=== PATIENT | male | born 1970 | race Caucasian/White ===

== ENCOUNTER 2017-12-25 19:37 | Emergency (ER) | payer OTHER ==
--- NOTE | 2017-12-25 20:21 | EDM.PDOC ---
ED HPI GENERAL MEDICAL PROBLEM - General Chief Complaint: Back Pain or Injury Stated Complaint: SENT BY CLINIC Time Seen by Provider: 12/25/17 20:21 - History of Present Illness INITIAL COMMENTS - FREE TEXT/NARRATIVE: 47-year-old male comes in with multiple complaints. First he is complaining of low back pain. His thinks his sinus infection is back.. Patient is a 4-5 week history of worsening low back pain he cannot recall a specific injury. He denies loss of bowel or bladder control. 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 The patient has had intermittent bouts of back spasm in the past. He's tried ibuprofen 800 mg 3 times a day with some success but not great. Patient was treate the first November for sinus infection he thinks is coming back he said he was taken Augmentin 500 mg twice a day he had some improvement he also thinks he may have an ear infection. He denies any fevers or chills Back Pain Score (Numeric/FACES): 9 - Related Data Allergies Allergy/AdvReac Type Severity Reaction Status Date / Time No Known Allergies Allergy Verified 12/25/17 19:56 Home Meds: Home Meds Clindamycin HCl 300 mg PO Q8H #30 capsule 12/25/17 [Rx] Cyclobenzaprine [Flexeril] 10 mg PO BEDTIME #7 tab 12/25/17 [Rx] Past Medical History HEENT History: Reports: None Gastrointestinal History: Reports: None Musculoskeletal History: Reports: Fracture Neurological History: Reports: Concussion Psychiatric History: Reports: Depression - Past Surgical History Other HEENT Surgeries/Procedures: [place] teeth GI Surgical History: Reports: Appendectomy Other Endocrine Surgeries/Procedures: Lymph node biopsy Social & Family History - Family History Family Medical History: Noncontributory - Tobacco Use Smoking Status *Q: Never Smoker - Caffeine Use Caffeine Use: Reports: Energy Drinks Other Caffeine Use: Energy drink 16 oz 5-7 days/week - Recreational Drug Use Recreational Drug Use: No ED ROS GENERAL - Review of Systems Review Of Systems: See Below Constitutional: Reports: No Symptoms HEENT: Reports: Ear Pain, Sinus Problem Respiratory: Reports: No Symptoms Cardiovascular: Reports: No Symptoms GI/Abdominal: Reports: No Symptoms : Reports: No Symptoms ED EXAM,LOWER BACK PAIN/INJURY - Physical Exam Exam: See Below Exam Limited By: No Limitations General Appearance: Alert, No Apparent Distress Ears: Normal External Exam, Normal Canal, Hearing Grossly Normal, Normal TMs Nose: Normal Inspection, No Blood, Other (He has mild right frontal sinus discomfort with percussion significant discomfort with maxillary percussion left -sided sinuses are normal if he looks down he developed significant discomfort around the right maxillary sinus) Throat/Mouth: Normal Inspection, Normal Lips, Normal Teeth, Normal Gums, Normal Oropharynx, Normal Voice, No Airway Compromise Head: Atraumatic, Normocephalic Neck: Normal Inspection, Supple, Non-Tender, Full Range of Motion. No: Lymphadenopathy (L), Lymphadenopathy (R) Respiratory/Chest: No Respiratory Distress, Lungs Clear, Normal Breath Sounds, No Accessory Muscle Use, Chest Non-Tender Cardiovascular: Regular Rate, Rhythm, No Edema, No Murmur GI/Abdominal: Normal Bowel Sounds, Non-Tender, No Organomegaly Back Exam: Normal Inspection, Full Range of Motion. No: CVA Tenderness (L), CVA Tenderness (R) Neurological: Alert, Normal Mood/Affect Course - Vital Signs Last Recorded V/S: Last Vital Signs Temp 36.5 C 12/25/17 19:53 Pulse 63 12/25/17 19:53 Resp 14 12/25/17 19:53 BP 159/95 H 12/25/17 19:53 Pulse Ox 96 12/25/17 19:53 Departure - Departure Time of Disposition: 20:41 Disposition: Home, Self-Care 01 Clinical Impression: Right maxillary sinusitis, Lumbar strain - Discharge Information Prescriptions: Clindamycin HCl 300 mg PO Q8H #30 capsule Cyclobenzaprine [Flexeril] 10 mg PO BEDTIME #7 tab Referrals: Fady Felder MD [Primary Care Provider] - Forms: ED Department Discharge
== END 2017-12-25 20:55 | disposition home or self-care (01) ==
LOC: JD.ED 19:37
DX: S39.012A Strain of muscle, fascia and tendon of lower back, initial encounter (principal); J32.0 Chronic maxillary sinusitis; X58.XXXA Exposure to other specified factors, initial encounter
CPT/HCPCS: 99283

== ENCOUNTER 2018-01-03 01:47 | Emergency (ER) | payer OTHER ==
[2018-01-03] MEDS ORDERED: Azithromycin 250 MG Tab PO ONE (02:25)
--- NOTE | 2018-01-03 02:30 | EDM.PDOC ---
ED HPI GENERAL MEDICAL PROBLEM - General Chief Complaint: Respiratory Problem Stated Complaint: COUGH/CONGESTION Time Seen by Provider: 01/03/18 02:08 Source of Information: Reports: Patient, RN Notes Reviewed - History of Present Illness INITIAL COMMENTS - FREE TEXT/NARRATIVE: 47-year-old male comes in with severe cough and congestion. He first started nasal and sinus congestion about 10 days ago. Was diagnosed with an ear infection very shortly after that, started on clindamycin for that. The nasal and sinus congestion has continued with mostly clear type drainage. His throat is somewhat irritated but not severely uncomfortable. Cough has worsened tremendously over the past several days. He is working as a [employer], working 12-14 hours a day all having excessive the sleeping at night. No fever or chills., He does not smoke. - Related Data Allergies Allergy/AdvReac Type Severity Reaction Status Date / Time No Known Allergies Allergy Verified 01/03/18 01:56 Home Meds: Home Meds Clindamycin HCl 300 mg PO Q8H #30 capsule 12/25/17 [Rx] Cyclobenzaprine [Flexeril] 10 mg PO BEDTIME #7 tab 12/25/17 [Rx] Past Medical History HEENT History: Reports: None Gastrointestinal History: Reports: None Musculoskeletal History: Reports: Fracture Neurological History: Reports: Concussion Psychiatric History: Reports: Depression - Past Surgical History HEENT Surgical History: Reports: Other (See Below) Other HEENT Surgeries/Procedures: [place] teeth GI Surgical History: Reports: Appendectomy Endocrine Surgical History: Reports: Other (See Below) Other Endocrine Surgeries/Procedures: Lymph node biopsy Social & Family History - Family History Family Medical History: Noncontributory - Tobacco Use Smoking Status *Q: Never Smoker - Caffeine Use Caffeine Use: Reports: Coffee Other Caffeine Use: Energy drink 16 oz 5-7 days/week - Recreational Drug Use Recreational Drug Use: No ED ROS GENERAL - Review of Systems Review Of Systems: See Below Constitutional: Denies: Fever, Chills, Diaphoresis HEENT: Reports: Rhinitis, Sinus Problem (Mild discomfort), Throat Pain Respiratory: Reports: Cough, Sputum (Scant) Cardiovascular: Reports: Chest Pain (With coughing) GI/Abdominal: Denies: Abdominal Pain, Nausea, Vomiting Musculoskeletal: Reports: No Symptoms Skin: Reports: No Symptoms Neurological: Reports: No Symptoms ED EXAM, GENERAL - Physical Exam Exam: See Below General Appearance: Alert, Other (Frequent nonproductive cough) Eye Exam: Bilateral Eye: PERRL Ears: Normal External Exam, Normal Canal, Normal TMs Nose: Normal Inspection Throat/Mouth: Normal Inspection Head: No: Facial Swelling, Facial Tenderness Neck: Supple, Full Range of Motion. No: Lymphadenopathy (L), Lymphadenopathy (R ) Respiratory/Chest: No Respiratory Distress, Lungs Clear, Normal Breath Sounds. No: Rhonchi, Wheezing Cardiovascular: Regular Rate, Rhythm Extremities: Normal Inspection, Normal Range of Motion Neurological: Alert, Oriented, No Motor/Sensory Deficits Skin Exam: Warm, Dry, Normal Color Course - Vital Signs Last Recorded V/S: Last Vital Signs Temp 97.7 F 01/03/18 01:53 Pulse 76 01/03/18 01:53 Resp 18 01/03/18 01:53 BP 152/100 H 01/03/18 01:53 Pulse Ox 98 01/03/18 01:53 - Orders/Labs/Meds Meds: Medications Discontinued Medications Generic Name Dose Route Start Last Admin Trade Name Ramses PRN Reason Stop Dose Admin Azithromycin 500 mg 01/03/18 02:25 01/03/18 02:30 Zithromax PO 01/03/18 02:26 500 mg ONETIME ONE Administration Departure - Departure Time of Disposition: 02:25 Disposition: Home, Self-Care 01 Condition: Fair Clinical Impression: Viral upper respiratory infection, Bronchitis - Discharge Information Instructions: Cough, Adult, [id number] Referrals: Fady Felder MD [Primary Care Provider] - Forms: ED Department Discharge, ED Return to Work/School Form Additional Instructions: Zithromax antibiotic as prescribed, continue Sudafed type decongestant every 4- 6 hours as needed for severe nasal and sinus congestion, vaporizer or steam as needed, Phenergan with codeine cough medication as needed to help you sleep, do not take that within [address], albuterol inhaler 2 puffs every 4-6 hours as needed for severe cough or difficulty breathing, clinic if not much better within 3-5 days as expected or if symptoms worsening in any way. Finish clindamycin as previously prescribed.
== END 2018-01-03 02:39 | disposition home or self-care (01) ==
LOC: JD.ED 01:47
DX: J40 Bronchitis, not specified as acute or chronic (principal); J06.9 Acute upper respiratory infection, unspecified
CPT/HCPCS: 99283; A9270

== ENCOUNTER 2018-09-23 17:07 | Emergency (ER) | payer OTHER, BC ==
[2018-09-23] MEDS ORDERED: HYDROmorphone 1 MG/ML Syringe IVPUSH ONE (18:17)
[2018-09-23] MEDS ORDERED: Ondansetron 4 MG/2 ML SDV IVPUSH ONE (18:17)
--- NOTE | 2018-09-23 18:17 | EDM.PDOC ---
ED HPI GENERAL MEDICAL PROBLEM - General Chief Complaint: Trauma Stated Complaint: MULTIPLE INJURIES RT SIDE FELL 6 FT Time Seen by Provider: 09/23/18 18:00 Source of Information: Reports: Patient, RN Notes Reviewed History Limitations: Reports: No Limitations - History of Present Illness INITIAL COMMENTS - FREE TEXT/NARRATIVE: The patient states that he fell 6 to 8 feet off a semi trailer onto concrete around 13:50 this afternoon, landing on his left side. He presents with pain to his left shoulder, left upper arm, the left side of his chest, his left upper back, and the dorsal aspect of his right hand. His greatest pain is to his left chest and left upper back. He denies having pain to his pelvis or lower extremities. He states that he did not hit his head, and there was no loss of consciousness. The patient drove himself here. The patient's last oral intake was around 13:00 this afternoon. The patient's PCP is Dr. Felder. Left Chest Pain Score (Numeric/FACES): 10 - Related Data Allergies Allergy/AdvReac Type Severity Reaction Status Date / Time No Known Allergies Allergy Verified 09/23/18 17:17 Home Meds: Home Meds Acetaminophen/HYDROcodone [[place] 325-5 MG] 1 - 2 tab PO Q6H PRN #8 tablet [Rx] Past Medical History Cardiovascular History: Reports: High Cholesterol (untreated) Musculoskeletal History: Reports: Fracture (fingers) Psychiatric History: Reports: Depression (untreated) - Past Surgical History HEENT Surgical History: Reports: Oral Surgery ([place] teeth extraction) GI Surgical History: Reports: Appendectomy (1989) Musculoskeletal Surgical History: Reports: Shoulder Surgery (left arthroscopic, right open) Oncologic Surgical History: Reports: Other (See Below) (Left axillary lymph node biopsy) Social & Family History - Family History Family Medical History: Noncontributory - Tobacco Use Smoking Status *Q: Never Smoker - Caffeine Use Caffeine Use: Reports: Coffee Other Caffeine Use: Energy drink 16 oz 5-7 days/week - Alcohol Use Alcohol Use History: Yes Alcohol Use Frequency: Rarely - Recreational Drug Use Recreational Drug Use: No - Living Situation & Occupation Living situation: Reports: , with Spouse, with Family (1 child) 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 ED EXAM, GENERAL - Physical Exam Exam: See Below Exam Limited By: No Limitations General Appearance: Alert, WD/WN, Mild Distress (Appears to be in pain) Eye Exam: Bilateral Eye: EOMI, Normal Inspection Ears: Normal External Exam, Hearing Grossly Normal Nose: Normal Inspection Throat/Mouth: Normal Inspection, Normal Lips, Normal Voice, No Airway Compromise Head: Atraumatic, Normocephalic Neck: Normal Inspection, Full Range of Motion Respiratory/Chest: No Respiratory Distress, Lungs Clear, Normal Breath Sounds, No Accessory Muscle Use, Other (No visible abnormality to the left side of the patient's chest, such as swelling, erythema, ecchymosis, or abrasion. Tenderness primarily to the left chest around the 4th to 6th intercostal space, midaxillary line, as well as to the lateral aspect of the left scapula. No crepitus on palpation. No rub on auscultation.). No: Crackles, Rhonchi, Wheezing, Pleural Rub Cardiovascular: Normal Peripheral Pulses, Regular Rate, Rhythm, No Edema, No Gallop, No JVD, No Murmur, No Rub Peripheral Pulses: 4+: Radial (L), Radial (R) GI/Abdominal: Normal Bowel Sounds, Soft, Non-Tender, No Organomegaly, No Distention, No Abnormal Bruit, No Mass (Male) Exam: Deferred Rectal (Males) Exam: Deferred Back Exam: Normal Inspection, Full Range of Motion. No: Vertebral Tenderness Extremities: Normal Inspection, Normal Range of Motion, No Pedal Edema, Normal Capillary Refill, Other (No visible abnormality to the left upper extremity, such as swelling, erythema, ecchymosis or abrasion, however, there is tenderness to palpation, particularly of the upper left humerus. Neurovascular status of the left upper extremity is intact. Additionally, there is tenderness to the dorsal aspect of the right hand, although there is no visible abnormality , such as swelling, erythema, ecchymosis, or abrasion. Neurovascular status of the right hand is intact.) Neurological: Alert, Oriented, Normal Cognition, No Motor/Sensory Deficits Psychiatric: Normal Affect Skin Exam: Warm, Dry, Intact, Normal Color, No Rash Course - Vital Signs Last Recorded V/S: Last Vital Signs Temp 37.2 C 09/23/18 17:15 Pulse 93 02/18/19 17:15 Resp 16 09/23/18 17:15 BP 169/106 H 09/23/18 17:15 Pulse Ox 99 09/23/18 17:15 - Orders/Labs/Meds Orders: Active Orders 24 hr Category Date Time Status Chest 1V Frontal [CR] Stat Exams 09/23/18 17:29 Taken Forearm 2V Lt [CR] Stat Exams 09/23/18 18:20 Ordered Hand 2V Rt [CR] Stat Exams 09/23/18 18:21 Ordered Humerus Lt [CR] Stat Exams 09/23/18 18:20 Ordered Shoulder Comp Lt [CR] Stat Exams 09/23/18 18:19 Ordered Sodium Chloride 0.9% [Normal Saline] 1,000 ml Med 09/23/18 18:30 Active IV ASDIRECTED Medication Orders Sodium Chloride (Normal Saline) 1,000 mls @ 150 mls/hr IV ASDIRECTED NINO Last Admin: 09/23/18 18:23 Dose: 150 mls/hr Meds: Medications Generic Name Dose Route Start Last Admin Trade Name Freq PRN Reason Stop Dose Admin Sodium Chloride 1,000 mls @ 150 mls/hr 09/23/18 18:30 09/23/18 18:23 Normal Saline IV 150 mls/hr ASDIRECTED NINO Administration Discontinued Medications Generic Name Dose Route Start Last Admin Trade Name Freq PRN Reason Stop Dose Admin Hydromorphone HCl 1 mg 09/23/18 18:17 09/23/18 18:25 Dilaudid IVPUSH 09/23/18 18:18 1 mg ONETIME ONE Administration Ondansetron HCl 4 mg 09/23/18 18:17 09/23/18 18:25 Zofran IVPUSH 09/23/18 18:18 4 mg ONETIME ONE Administration - Re-Assessments/Exams Free Text/Narrative Re-Assessment/Exam: 09/23/18 18:16 Portable chest radiograph appears to be grossly normal. The cardiac silhouette is within normal limits. No pulmonary vascular congestion. No pleural effusions. No focal infiltrate. No pneumothorax. No rib fractures seen. Formal read per the Radiologist pending. 09/23/18 19:18 3-view radiographs of the left shoulder appear to be normal. No fracture of the humerus or scapula identified. No before meals separation. Formal read per the Radiologist pending. 4-view radiographs of the left humerus appear to be normal. No fracture or dislocation identified. Formal read per the Radiologist pending. 2-view radiographs of the left forearm appear to be normal. No fracture or dislocation identified. Formal read per the Radiologist pending. 2-view radiographs of the right hand appear to be normal. No fracture or dislocation identified. Formal read per the Radiologist pending. 09/23/18 19:28 Test results discussed with the patient and his . As above, nothing appears to be broken. I will discharge him home with a prescription for [place], and I am recommending that he take [id number] ibuprofen in addition. I will write him a note for work for tomorrow, during which time he can follow-up with his PCP, Dr. Felder, who may want to have the patient off work for a longer period of time. Departure - Departure Time of Disposition: 19:31 Disposition: Home, Self-Care 01 Condition: Fair Clinical Impression: Fall from mobile elevated work platform as cause of accidental injury, Multiple contusions - Discharge Information *PRESCRIPTION DRUG MONITORING PROGRAM REVIEWED*: Not Applicable *COPY OF PRESCRIPTION DRUG MONITORING REPORT IN PATIENT FRANCES: Not Applicable Prescriptions: Acetaminophen/HYDROcodone [[place] 325-5 MG] 1 - 2 tab PO Q6H PRN #8 tablet PRN Reason: Pain (Severe 7-10) Referrals: Fady Felder MD [Primary Care Provider] - Forms: ED Department Discharge, ED Return to Work/School Form Additional Instructions: You were seen in the emergency room after falling 6 to 8 feet off the back of a semi trailer onto your left side. Workup in the ER included x-rays of your chest, your left shoulder, your left upper arm, your left forearm, and your right hand. All of your x-rays were normal. No broken bones were found. Take [id number] ibuprofen, 3-4 tablets (600-800 mg) every 8 hours, with food, as needed for discomfort. You have been prescribed the opiate pain reliever [place]. Take 1 to 2 tablets of [place] up to every 6 hours, as needed for pain not relieved by ibuprofen. If you take [place], do not drive or operate heavy machinery for 10 hours afterwards. [place] will likely cause constipation, so consider taking a stool softener. Aid note to be off work tomorrow, 09/24/2017 has been provided to you. Follow-up with your PCP, Dr. Felder, tomorrow, 09/24/2018, to determine how long he would like you off work. If any other problems, please do not hesitate to return to the ER. - My Orders Last 24 Hours: My Active Orders 09/23/18 17:29 Chest 1V Frontal [CR] Stat 09/23/18 18:19 Shoulder Comp Lt [CR] Stat 09/23/18 18:20 Forearm 2V Lt [CR] Stat Humerus Lt [CR] Stat 09/23/18 18:21 Hand 2V Rt [CR] Stat 09/23/18 18:30 Sodium Chloride 0.9% [Normal Saline] 1,000 ml IV ASDIRECTED - Assessment/Plan Last 24 Hours: My Active Orders 09/23/18 17:29 Chest 1V Frontal [CR] Stat 09/23/18 18:19 Shoulder Comp Lt [CR] Stat 09/23/18 18:20 Forearm 2V Lt [CR] Stat Humerus Lt [CR] Stat 09/23/18 18:21 Hand 2V Rt [CR] Stat 09/23/18 18:30 Sodium Chloride 0.9% [Normal Saline] 1,000 ml IV ASDIRECTED
[2018-09-23] MEDS ORDERED: Sodium Chloride 0.9% 1,000 ML IV SCH (18:30)
--- NOTE | 2018-09-23 21:01 | CR ---
Chest: Portable view of the chest was obtained. Comparison: No prior chest x-ray, previous chest CT of 08/24/18. Heart size is within normal limits for portable technique. Upper mediastinum is also within normal limits. Lungs are clear with no acute parenchymal change. Bony structures are grossly intact. Impression: 1. Nothing acute is seen on portable chest x-ray. Diagnostic code #1
--- NOTE | 2018-09-23 21:01 | CR ---
Left forearm: Two views of the left forearm were obtained. Comparison: No prior forearm study. No fracture or other bony abnormality is seen. Impression: 1. No abnormality is seen on left forearm study. Diagnostic code #1
--- NOTE | 2018-09-23 21:01 | CR ---
Left humerus: AP and lateral views of the left humerus were obtained. No fracture or other bony abnormality is seen. Impression: 1. No abnormality is seen on two-view left humerus exam. Diagnostic code #1
--- NOTE | 2018-09-23 21:01 | CR ---
Right hand: Two views of the right hand were obtained. Comparison: No prior hand exam. Joint spaces are preserved. No acute fracture, dislocation or other bony abnormality is seen. Impression: 1. No abnormality is appreciated on two-view right hand exam. Diagnostic code #1
--- NOTE | 2018-09-23 21:01 | CR ---
Left shoulder: Three views of the left shoulder were obtained. Comparison: No previous study. Acromioclavicular joint and glenohumeral joints appear within normal limits. No fracture, dislocation or other bony abnormality is seen. Impression: 1. No abnormality is seen on left shoulder study. Diagnostic code #1
== END 2018-09-23 19:52 | disposition home or self-care (01) ==
LOC: JD.ED 17:07
DX: R07.9 Chest pain, unspecified (principal); M54.6 Pain in thoracic spine; M25.512 Pain in left shoulder; M79.622 Pain in left upper arm; M79.641 Pain in right hand; Z90.49 Acquired absence of other specified parts of digestive tract; W17.89XA Other fall from one level to another, initial encounter
CPT/HCPCS: 71045; 73030; 73060; 73090; 73120; 96361; 96374; 96375; 99283; J1170; J2405; J7040; 99284

== ENCOUNTER 2019-12-29 12:12 | Emergency (ER) | payer BC ==
[2019-12-29] MEDS ORDERED: Sodium Chloride 0.9% 10 ML Syringe FLUSH PRN (12:40)
[2019-12-29] MEDS ORDERED: Sodium Chloride 0.9% 1,000 ML IV ONE (12:41)
[2019-12-29] MEDS ORDERED: Ondansetron 4 MG/2 ML SDV IVPUSH ONE (12:41)
[2019-12-29] MEDS ORDERED: HYDROmorphone 1 MG/ML Syringe IVPUSH ONE (12:42)
[2019-12-29] MEDS ORDERED: Aspirin 81 MG Tab.Chew PO ONE (12:43)
[2019-12-29] MEDS ORDERED: LORazepam 2 MG/ML SDV IVPUSH STA (12:47)
[2019-12-29] MEDS ORDERED: HYDROmorphone 0.5 MG/0.5 ML Syringe IVPUSH ONE (12:48)
--- NOTE | 2019-12-29 12:54 | EDM.PDOC ---
<Candice Myao - Last Filed: 12/29/19 14:28> ED HPI GENERAL MEDICAL PROBLEM - General Chief Complaint: Upper Extremity Injury/Pain Stated Complaint: L ARM PAIN Time Seen by Provider: 12/29/19 12:17 Source of Information: Reports: Patient History Limitations: Reports: No Limitations - History of Present Illness INITIAL COMMENTS - FREE TEXT/NARRATIVE: Mr. Beal is a 49 year old man with a history of normal stress test and echo three years ago, total cholesterol 280 5 months ago and a fatty liver, who now presents to the ED with complaints of burning left arm pain that started around 12:00 today while her was sitting in his recliner relaxing. He does not know of any trauma or strenuous activity prior to the pain. His only activity over the last few days was vacuuming. He appreciates pain in his left lateral chest, left neck, radiating down his left arm to his finger tips. He does have paraesthesia of bilateral fingers. Movement makes the pain worse. Nothing seems to help the pain. He does have SOB. Denies N/V or diaphoresis. The patient denies walking around makes the pain worse. His father at age 48 from a cardiac reason. Here in the ED the patient is hemodynamically stable with a BP 137/84, pulse 68 , and afebrile. The patient had a resp rate of 28 with SpO2 100% with the increasing paraesthesia. Patient educated on breathing techniques. Now saturating 95% on room air. The patient's PCP is Dr. Fady Felder. Left Arm Pain Score (Numeric/FACES): 10 - Related Data Allergies Allergy/AdvReac Type Severity Reaction Status Date / Time No Known Allergies Allergy Verified 12/29/19 12:24 Home Meds: Home Meds Acetaminophen/HYDROcodone [[place] 325-5 MG] 1 - 2 tab PO Q6H PRN #8 tablet [Rx] Past Medical History Cardiovascular History: Reports: High Cholesterol Musculoskeletal History: Reports: Fracture Neurological History: Reports: Concussion Psychiatric History: Reports: Depression - Past Surgical History HEENT Surgical History: Reports: Oral Surgery GI Surgical History: Reports: Appendectomy Other Endocrine Surgeries/Procedures: Lymph node biopsy Musculoskeletal Surgical History: Reports: Shoulder Surgery Oncologic Surgical History: Reports: Other (See Below) Social & Family History - Family History Family Medical History: Noncontributory - Tobacco Use Smoking Status *Q: Never Smoker Second Hand Smoke Exposure: No - Caffeine Use Caffeine Use: Reports: None Other Caffeine Use: Energy drink 16 oz 5-7 days/week - Recreational Drug Use Recreational Drug Use: No - Living Situation & Occupation Living situation: Reports: , with Spouse, with Family (1 child) 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 Denies: Chills, Fever, Weakness Eyes: Reports: No Symptoms Ears: Denies: Dizziness, Pain Nose: Reports: No Symptoms Mouth/Throat: Denies: Tongue Swelling, Hoarse Voice Respiratory: Reports: Shortness of Breath, Wheezing, Pleuritic Chest Pain, Cough Cardiovascular: Reports: Chest Pain. Denies: Edema, Palpitations, Syncope GI/Abdominal: Denies: Constipation, Diarrhea, Nausea, Vomiting Genitourinary: Reports: No Symptoms Musculoskeletal: Reports: Neck Pain (left), Shoulder Pain (Left burning pain), Arm Pain (Left burning pain), Hand Pain (left burning pain) Skin: Reports: No Symptoms Neurological: Reports: Tingling (bilateral fingers). Denies: Confusion, Dizziness, Headache, Syncope Psychiatric: Reports: Anxiety. Denies: Confusion ED EXAM, GENERAL - Physical Exam Exam: See Below Exam Limited By: Other (T: 97.8 P: 74 Resp: 20 BP 153/100) General Appearance: Alert, WD/WN, Anxious, Moderate Distress Eye Exam: Bilateral Eye: EOMI, Normal Inspection Ears: Normal External Exam, Hearing Grossly Normal Nose: Normal Inspection Throat/Mouth: Normal Inspection, Normal Voice, No Airway Compromise Head: Atraumatic, Normocephalic Neck: Normal Inspection, Full Range of Motion Respiratory/Chest: No Respiratory Distress, Lungs Clear, Normal Breath Sounds, No Accessory Muscle Use, Chest Non-Tender, Other (tachypneic) Cardiovascular: Normal Peripheral Pulses, Regular Rate, Rhythm, No Edema, No Gallop, No JVD, No Murmur, No Rub, Bradycardia Peripheral Pulses: 2+: Dorsalis Pedis (L), Dorsalis Pedis (R) GI/Abdominal: Normal Bowel Sounds, Soft, Non-Tender, No Organomegaly, No Distention, No Abnormal Bruit, No Mass (Male) Exam: Deferred Rectal (Males) Exam: Deferred Back Exam: Normal Inspection Extremities: Normal Inspection, No Pedal Edema, Normal Capillary Refill, Arm Pain (Left arm burning pain), Other (parasthesia bilateral finger tips). No: Pedal Edema Neurological: Alert, Oriented, CN II-XII Intact, Normal Cognition, Normal Reflexes, No Motor/Sensory Deficits Psychiatric: Anxious Skin Exam: Warm, Dry, Intact, Normal Color, No Rash Lymphatic: No Adenopathy EKG INTERPRETATION EKG Date: 12/29/19 Time: 12:21 Rhythm: NSR [place]: Normal P-Wave: Present QRS: Normal ST-T: Elevated (Early reolarization) QT: Normal Course - Vital Signs Last Recorded V/S: Last Vital Signs Temp 97.8 F 12/29/19 12:21 Pulse 74 12/29/19 12:21 Resp 20 12/29/19 12:21 BP 153/100 H 12/29/19 12:21 Pulse Ox 100 12/29/19 12:21 - Orders/Labs/Meds Orders: Active Orders 24 hr Category Date Time Status EKG Documentation Completion [RC] STAT Care 12/29/19 12:39 Active Peripheral IV Care [RC] . DIRECTED Care 12/29/19 12:40 Active Peripheral IV Insertion Adult [OM.PC] Routine Oth 12/29/19 12:40 Ordered Labs: Laboratory Tests 12/29/19 12/29/19 Range/Units 12:40 12:40 WBC 5.60 (4.23-9.07) K/mm3 RBC 5.87 (4.63-6.08) M/mm3 Hgb 15.8 D (13.7-17.5) gm/dl Hct 46.9 (40.1-51.0) % MCV 79.9 D (79.0-92.2) fl MCH 26.9 (25.7-32.2) pg MCHC 33.7 (32.2-35.5) g/dl RDW Std Deviation 38.3 (35.1-43.9) fL Plt Count 187 (163-337) K/mm3 MPV 10.0 (9.4-12.3) fl Neutrophils % (Manual) 56 (40-60) % Band Neutrophils % 0 (0-10) % Lymphocytes % (Manual) 30 (20-40) % Atypical Lymphs % 0 % Monocytes % (Manual) 11 H (2-10) % Eosinophils % (Manual) 3 (0.8-7.0) % Basophils % (Manual) 0 L (0.2-1.2) Platelet Estimate Adequate RBC Morph Comment Normal Sodium 138 (136-145) mEq/L Potassium 3.9 (3.5-5.1) mEq/L Chloride 103 (98-107) mEq/L Carbon Dioxide 26 (21-32) mEq/L Anion Gap 12.9 (5-15) BUN 18 (7-18) mg/dL Creatinine 1.1 (0.7-1.3) mg/dL Est Cr Clr Drug Dosing 93.82 mL/min Estimated GFR (MDRD) > 60 (>60) mL/min BUN/Creatinine Ratio 16.4 (14-18) Glucose 103 (74-106) mg/dL Calcium 9.7 (8.5-10.1) mg/dL Magnesium 1.8 (1.8-2.4) mg/dl Total Bilirubin 0.8 (0.2-1.0) mg/dL AST 38 H (15-37) U/L ALT 73 H (16-63) U/L Alkaline Phosphatase 73 (46-116) U/L Troponin I < 0.017 (0.00-0.056) ng/mL Total Protein 7.4 (6.4-8.2) g/dl Albumin 4.2 (3.4-5.0) g/dl Globulin 3.2 gm/dL Albumin/Globulin Ratio 1.3 (1-2) Meds: Medications Discontinued Medications Generic Name Dose Route Start Last Admin Trade Name Ramses PRN Reason Stop Dose Admin Aspirin 324 mg 12/29/19 12:43 12/29/19 13:10 Aspirin PO 12/29/19 12:44 324 mg ONETIME ONE Administration Hydromorphone HCl 1 mg 12/29/19 12:42 Dilaudid IVPUSH 12/29/19 12:43 ONETIME ONE Hydromorphone HCl 0.5 mg 12/29/19 12:48 12/29/19 13:15 Dilaudid IVPUSH 12/29/19 12:49 0.5 mg ONETIME ONE Administration Sodium Chloride 1,000 mls @ 999 mls/hr 12/29/19 12:41 12/29/19 13:17 Normal Saline IV 12/29/19 13:41 999 mls/hr ONETIME ONE Administration Lorazepam 0.5 mg 12/29/19 12:47 12/29/19 13:07 Ativan IVPUSH 12/29/19 12:48 0.5 mg ONETIME STA Administration Ondansetron HCl 4 mg 12/29/19 12:41 12/29/19 13:12 Zofran IVPUSH 12/29/19 12:42 4 mg ONETIME ONE Administration Sodium Chloride 10 ml 12/29/19 12:40 12/29/19 12:40 Saline Flush FLUSH 10 ml ASDIRECTED PRN Administration Keep Vein Open - Re-Assessments/Exams Free Text/Narrative Re-Assessment/Exam: 12/29/19 12:49 The patient present with complaints of left arm pain that start left lateral chest radiating to left neck, down to the hand. He does not remember and injury and was sitting in his chair when the pain started. Ordered labs, cxr, IV insertion, Dilaudid 0.5mg, Ativan 0.5mg, asa 364 mg and normal saline bolus. 12/29/19 13:35 CXR unremarkable pending formal Radiologist reading. The patient is calmer. SpO2 is 95% on room air. He reports his arm pain is better with mild burning in his left bicep. He has good strength and CMS in the arm. The right finger paraesthesia has resolved with the left finger tip paraesthesia decreasing. The patient states he has never had a panic attack previously Departure - Departure Disposition: Home, Self-Care 01 Clinical Impression: Panic attack due to exceptional stress - Discharge Information Instructions: Panic Attack, [id number] Referrals: Fady Felder MD [Primary Care Provider] - Forms: ED Department Discharge Additional Instructions: You were evaluated in the ER today regarding your left arm/chest discomfort. Your laboratory evaluation done at today's visit demonstrates everything is essentially within normal limits. Your liver enzymes are mildly elevated, but you do have a history of fatty liver disease, that could explain this. Highly recommend you follow-up with your primary care provider, Dr. Felder, or Kaylin Cheung in our clinic for further work-up and reevaluation to make sure things are getting better as expected. It is likely that most of your symptoms today were due to a panic attack due to exceptional stress in your life. The medications that we gave you today seem to help relieve the symptoms and you were better by the time you have been discharged. Please return to the ER at any time if symptoms change or worsen. Sepsis Event Note - Evaluation Sepsis Screening Result: No Definite Risk - Focused Exam Vital Signs: Vital Signs Temp Pulse Resp BP Pulse Ox 12/29/19 12:21 97.8 F 74 20 153/100 H 100 Date Exam was Performed: 12/29/19 Time Exam was Performed: 14:28 <Alexa Helton - Last Filed: 12/29/19 20:45> Review of Systems - Review of Systems Review Of Systems: See Below Course - Re-Assessments/Exams Free Text/Narrative Re-Assessment/Exam: 12/29/19 14:03 I have read and reviewed the student's HPI and examined the patient and agree with Karrie Mayo, GRANT student. I do believe the patient was suffering from a panic attack in nature, we have talked with him regarding anxiety and the need to follow-up with his primary care provider, he acknowledges understanding and will do as such. Departure - Departure Time of Disposition: 14:04 Condition: Good - Discharge Information *PRESCRIPTION DRUG MONITORING PROGRAM REVIEWED*: No *COPY OF PRESCRIPTION DRUG MONITORING REPORT IN PATIENT FRANCES: No Sepsis Event Note - Focused Exam Date Exam was Performed: 12/29/19 Time Exam was Performed: 20:45
--- NOTE | 2019-12-29 13:29 | CR ---
Chest: Portable view of the chest was obtained. Comparison: Prior chest x-ray of 09/23/18. Heart size and mediastinum are normal. Lungs are clear. Bony structures are unremarkable. Impression: 1. Nothing acute is appreciated on portable chest x-ray. Diagnostic code #1 This report was dictated in MDT
== END 2019-12-29 14:18 | disposition home or self-care (01) ==
LOC: JD.ED 12:12
DX: F41.0 Panic disorder [episodic paroxysmal anxiety] (principal); F43.9 Reaction to severe stress, unspecified
CPT/HCPCS: 36415; 71045; 80053; 83735; 84484; 85007; 85027; 93005; 96374; 96375; 99285; A9270; J1170; J2060; J2405; J7030

== ENCOUNTER 2021-03-23 02:49 | Emergency (ER) | payer BC ==
[2021-03-23] MEDS ORDERED: Ibuprofen 600 MG Tab PO ONE (03:59)
--- NOTE | 2021-03-23 03:59 | EDM.PDOC ---
ED HPI GENERAL MEDICAL PROBLEM - General Chief Complaint: Chest Pain Stated Complaint: CHEST PAIN/INDIGESTION Time Seen by Provider: 03/23/21 03:20 Source of Information: Reports: Patient History Limitations: Reports: No Limitations - History of Present Illness INITIAL COMMENTS - FREE TEXT/NARRATIVE: Mr. Beal is a very pleasant 51-year-old gentleman who now presents the ED st ating that he was woken from sleep around 02:30 this morning with sudden onset retrosternal pain. He describes the character as a pressure sensation. He states that it is constant, and a pain, not a discomfort. He states that the pain radiates to his left scapula and back area. No associated nausea, dyspnea, diaphoresis, or sense of impending doom. No prior similar symptoms, and the patient states that his current symptoms are different than the indigestion that he gets it sometimes. The patient states that he took a calcium antacid prior to coming to the ED, which did not help. The patient also reports that he took 600 mg of ibuprofen and 50 mg of Benadryl around 22:30, to help him sleep. The patient states that he underwent a coronary angiogram in 2017, which was clean. Here in the ED, the patient's initial BP is found to be modestly elevated at 150/101, otherwise, he is hemodynamically stable, afebrile, saturating 98% on room air. He appears to be comfortable, in no acute distress. Prior to this morning, the patient denies having a recent fever, chills, sore throat, ear pain, nasal or sinus congestion, cough, dyspnea, chest pain, palpitations, nausea, vomiting, constipation, diarrhea, abdominal pain, urinary symptoms, recent weight gain or weight loss, recent bloody bowel movements or black bowel movements, recent joint aches, headaches, or rashes. The patient's PCP is Dr. Fady Felder. He has not received a COVID vaccination. Middle Chest Pain Score (Numeric/FACES): 8 - Related Data Allergies Allergy/AdvReac Type Severity Reaction Status Date / Time No Known Allergies Allergy Verified 12/29/19 12:24 Home Meds: Home Meds Acetaminophen/HYDROcodone [[place] 325-5 MG] 1 - 2 tab PO Q6H PRN #8 tablet 09/23/18 [Rx] Past Medical History Cardiovascular History: Reports: High Cholesterol (untreated) Neurological History: Reports: Concussion Psychiatric History: Reports: Depression (untreated) - Past Surgical History HEENT Surgical History: Reports: Oral Surgery (dental extractions) Cardiovascular Surgical History: Reports: Other (See Below) (Coronary angiogram x 1, 2017 -> clean) GI Surgical History: Reports: Appendectomy Musculoskeletal Surgical History: Reports: Shoulder Surgery (bilateral arthroscopic) Oncologic Surgical History: Reports: Other (See Below) (lymph node biopsy axilla) Social & Family History - Family History Cardiac: Reports: Other (See Below) (Father 48 yrs old of viral cardiomyopathy) - Tobacco Use Tobacco Use Status *Q: Never Tobacco User - Caffeine Use Caffeine Use: Reports: None Other Caffeine Use: Energy drink 16 oz 5-7 days/week - Alcohol Use Alcohol Use History: Yes Alcohol Use Frequency: Socially - Recreational Drug Use Recreational Drug Use: No - Living Situation & Occupation Living situation: Reports: , with Family (Son + stepson) 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 ED EXAM, GENERAL - Physical Exam Exam: See Below Exam Limited By: No Limitations General Appearance: Alert, WD/WN, No Apparent Distress Eye Exam: Bilateral Eye: EOMI, Normal Inspection Ears: Normal External Exam, Hearing Grossly Normal Nose: Normal Inspection Throat/Mouth: Normal Inspection, Normal Lips, Normal Voice, No Airway Compromise Head: Atraumatic, Normocephalic Neck: Normal Inspection, Full Range of Motion Respiratory/Chest: No Respiratory Distress, Lungs Clear, Normal Breath Sounds, No Accessory Muscle Use, Chest Non-Tender (including the sternum and pectoralis muscles), Other (Pain is not induced by having the patient press his hands with outstretched arms in front of him, or by crossing either of his arms across his chest) Cardiovascular: Normal Peripheral Pulses, Regular Rate, Rhythm, No Edema, No Gallop, No JVD, No Murmur, No Rub Peripheral Pulses: 3+: Radial (L), Radial (R) GI/Abdominal: Normal Bowel Sounds, Soft, Non-Tender, No Organomegaly, No Distention, No Abnormal Bruit, No Mass Back Exam: Normal Inspection, Full Range of Motion, NT Extremities: Normal Inspection, Normal Range of Motion, No Pedal Edema, Normal Capillary Refill Neurological: Alert, Oriented, Normal Cognition, No Motor/Sensory Deficits Psychiatric: Normal Affect Skin Exam: Warm, Dry, Intact, Normal Color, No Rash #1 Interpretation EKG Date: 03/23/21 Time: 02:56 Rhythm: NSR Rate (Beats/Min): 68 [place]: Normal P-Wave: Present QRS: Normal ST-T: Other (J-point elevation in II, V2-V6, but no T wave inversions or other signs of ischemia) QT: Normal Comparison: No Change (12/29/2019) Course - Vital Signs Last Recorded V/S: Last Vital Signs Temp 36.9 C 03/23/21 03:01 Pulse 64 03/23/21 03:01 Resp 15 03/23/21 03:01 BP 150/101 H 03/23/21 03:01 Pulse Ox 98 03/23/21 03:01 - Orders/Labs/Meds Orders: Active Orders 24 hr Category Date Time Status Chest 1V Frontal [CR] Stat Exams 03/23/21 03:04 Taken EKG 12 Lead [EK] Stat Ther 03/23/21 03:04 Ordered Labs: Laboratory Tests 03/23/21 03/23/21 Range/Units 03:00 03:00 WBC 5.87 (4.23-9.07) K/mm3 RBC 5.16 (4.63-6.08) M/mm3 Hgb 14.2 D (13.7-17.5) gm/dl Hct 42.5 (40.1-51.0) % MCV 82.4 (79.0-92.2) fl MCH 27.5 (25.7-32.2) pg MCHC 33.4 (32.2-35.5) g/dl RDW Std Deviation 38.4 (35.1-43.9) fL Plt Count 184 (163-337) K/mm3 MPV 10.0 (9.4-12.3) fl Neut % (Auto) 54.5 (34.0-67.9) % Lymph % (Auto) 30.5 (21.8-53.1) % [place] % (Auto) 10.9 (5.3-12.2) % Eos % (Auto) 3.4 (0.8-7.0) Baso % (Auto) 0.5 (0.1-1.2) % Neut # (Auto) 3.20 (1.78-5.38) K/mm3 Lymph # (Auto) 1.79 (1.32-3.57) K/mm3 [place] # (Auto) 0.64 (0.30-0.82) K/mm3 Eos # (Auto) 0.20 (0.04-0.54) K/mm3 Baso # (Auto) 0.03 (0.01-0.08) K/mm3 Sodium 141 (136-145) mEq/L Potassium 4.5 (3.5-5.1) mEq/L Chloride 105 (98-107) mEq/L Carbon Dioxide 28 (21-32) mEq/L Anion Gap 12.5 (5-15) BUN 24 H (7-18) mg/dL Creatinine 1.0 (0.7-1.3) mg/dL Est Cr Clr Drug Dosing TNP Estimated GFR (MDRD) > 60 (>60) mL/min BUN/Creatinine Ratio 24.0 H (14-18) Glucose 93 (70-99) mg/dL Calcium 9.1 (8.5-10.1) mg/dL Total Bilirubin 0.8 (0.2-1.0) mg/dL AST 37 (15-37) U/L ALT 60 (16-63) U/L Alkaline Phosphatase 65 (46-116) U/L Troponin I < 0.017 (0.00-0.056) ng/mL Total Protein 7.3 (6.4-8.2) g/dl Albumin 4.2 (3.4-5.0) g/dl Globulin 3.1 gm/dL Albumin/Globulin Ratio 1.4 (1-2) Meds: Medications Discontinued Medications Generic Name Dose Route Start Last Admin Trade Name Freq PRN Reason Stop Dose Admin Al Hydroxide/Mg Hydroxide 30 0 ml 03/23/21 04:08 03/23/21 04:20 ml/ Lidocaine HCl 15 ml PO 03/23/21 04:09 45 ml ONETIME STA Administration Famotidine 40 mg 03/23/21 04:48 Famotidine 20 Mg Tab PO 03/23/21 04:49 ONETIME STA Ibuprofen 600 mg 03/23/21 03:59 03/23/21 04:20 Ibuprofen 600 Mg Tab PO 03/23/21 04:00 600 mg ONETIME ONE Administration - Re-Assessments/Exams Free Text/Narrative Re-Assessment/Exam: 03/23/21 03:55 As above, the patient was woken with sudden-onset sternal pain he describes as a pressure that radiates to his left scapula and back. The pain is constant, and he has not identified any modifiers. No associated symptoms. No prior similar symptoms. An ECG, obtained at triage, demonstrates some J-point elevation in lead II and V2V6, but no T wave inversions or other signs of ischemia. On examination, the pain is not reproducible with palpation, or with the patient pressing his hands with outstretched arms in front of his chest, or with crossing either of his arms across his chest. A CBC, CMP, troponin, and portable chest x-ray were ordered at triage. Portable chest radiograph appears to be grossly normal. The cardiac silhouette is within normal limits. No pulmonary vascular congestion. No pleural effusions seen on this AP view. No focal infiltrate. No pneumothorax. Formal read per the Radiologist pending. The patient's CBC is unremarkable. His CMP is unremarkable. His troponin is undetectably low. 03/23/21 04:08 Test results discussed with the patient. I suggested that we try a GI cocktail, to see if that has any effect. He agreed. 03/23/21 04:48 The patient reports that the GI cocktail did in fact help with his pain, which has stayed improved. This indicates that his pain is due to GERD. I will start him on famotidine here in the ED, and recommend that he start taking 1 tablet of famotidine twice a day for a week. At that time, he can decrease the dosage to once a day. If his symptoms return, he should go back to 1 tablet twice a day. If his symptoms never resolve despite taking famotidine twice a day, then he may need to be on a proton pump inhibitor, but under the circumstances, I would recommend that he follow-up with his PCP to arrange for an EGD. The patient agreed. The patient requested a note to be off work today. Departure - Departure Time of Disposition: 04:49 Disposition: Home, Self-Care 01 Condition: Good Clinical Impression: GERD (gastroesophageal reflux disease) - Discharge Information *PRESCRIPTION DRUG MONITORING PROGRAM REVIEWED*: Not Applicable *COPY OF PRESCRIPTION DRUG MONITORING REPORT IN PATIENT FRANCES: Not Applicable Referrals: Fady Felder MD [Primary Care Provider] - Forms: ED Department Discharge, ED Return to Work/School Form Additional Instructions: You were seen in the emergency room after waking up with central chest pain radiating to your left back. Work-up in the ER included several blood tests, a chest x-ray, and an ECG. Your entire work-up was unremarkable. You have not suffered a heart attack. You do not have pneumonia or collapsed lung. Your symptoms improved after you were given a GI cocktail, indicating that your pain was due to acid reflux, also known as GERD. You have been started on the antacid medicine famotidine. Famotidine is available [id number], and generic famotidine is just as good as brand-name Pepcid. We recommend that you take 1 tablet of famotidine twice a day for 1 week, then decrease the dosage to 1 tablet once a day. If your symptoms return, go back to 1 tablet twice a day, however, if you continue to have symptoms while taking famotidine twice a day, you may need to be switched to a stronger medication. Under those circumstances, we recommend that you follow-up with your PCP, Dr. Fady Felder, to arrange for an EGD = scope of the stomach. A note to be off work today has been provided to you. If any other problems, please do not hesitate to return to the ER. Sepsis Event Note (ED) - Evaluation Sepsis Screening Result: No Definite Risk - Focused Exam Vital Signs: Vital Signs Temp Pulse Resp BP Pulse Ox 03/23/21 03:01 36.9 C 64 15 150/101 H 98 - My Orders Last 24 Hours: My Active Orders 03/23/21 03:04 Chest 1V Frontal [CR] Stat EKG 12 Lead [EK] Stat - Assessment/Plan Last 24 Hours: My Active Orders 03/23/21 03:04 Chest 1V Frontal [CR] Stat EKG 12 Lead [EK] Stat
[2021-03-23] MEDS ORDERED: Alum Hydrox/Mag Hydrox/Simeth 30 ML, Lidocaine 2% 15 ML PO STA ×2 (04:08)
[2021-03-23] MEDS ORDERED: Famotidine 20 MG Tab PO STA (04:48)
--- NOTE | 2021-03-23 09:33 | CR ---
Chest: Portable view of the chest was obtained. Comparison: Prior chest x-ray of 12/29/19. Heart size and mediastinum are normal. Lungs are clear with no acute parenchymal change. No discrete osseous abnormality is appreciated. Impression: 1. Nothing acute is seen on portable chest x-ray. Diagnostic code #1
== END 2021-03-23 05:05 | disposition home or self-care (01) ==
LOC: JD.ED 02:49
DX: K21.9 Gastro-esophageal reflux disease without esophagitis (principal)
CPT/HCPCS: 36415; 71045; 80053; 84484; 85025; 93005; 99285; A9270; 93010; 99283

== ENCOUNTER 2021-07-01 01:09 | Emergency (ER) | payer BC ==
--- NOTE | 2021-07-01 01:52 | EDM.PDOC ---
ED HPI GENERAL MEDICAL PROBLEM - General Chief Complaint: Respiratory Problem Stated Complaint: COVID +/SOB Time Seen by Provider: 07/01/21 01:42 - History of Present Illness INITIAL COMMENTS - FREE TEXT/NARRATIVE: 51-year-old male presents the emergency room with shortness of breath and Covid- like symptoms. Patient was diagnosed with Covid on Sunday. His symptoms started on Sunday he thought he was coming down with another sinus infection developed quite a bit of sinus pressure especially on the right side. He has had some off-color and bloody drainage out of the right side as well. He is not aware of any fevers or chills his appetite is diminished but no nausea or vomiting no significant change in bowel habits other than its decreased because his appetite down he thinks he is lost 5 to 10 pounds since he has been ill his illness started on Sunday. Even though his sinuses are quite bothersome is most concerning symptom is his cough he will not allow him to sleep any chest has his nonproductive cough that will not seem to stop. Patient has had reflux problems hypercholesterolemia however is not on any current medications at this time Generalized Pain Score (Numeric/FACES): 3 - Related Data Allergies Allergy/AdvReac Type Severity Reaction Status Date / Time No Known Allergies Allergy Verified 07/01/21 01:34 Home Meds: Home Meds Amoxicillin 875 mg PO BID #20 tablet 07/01/21 [Rx] Benzonatate [Tessalon Perles] 200 mg PO TID PRN #15 cap 07/01/21 [Rx] Past Medical History Cardiovascular History: Reports: High Cholesterol Respiratory History: Reports: Bronchitis, Recurrent Gastrointestinal History: Reports: GERD Musculoskeletal History: Reports: Fracture Neurological History: Reports: Concussion Psychiatric History: Reports: Depression, Panic Attack - Infectious Disease History Infectious Disease History: Reports: Novel Coronavirus - Past Surgical History HEENT Surgical History: Reports: Oral Surgery Other HEENT Surgeries/Procedures: [place] teeth Cardiovascular Surgical History: Reports: Other (See Below) GI Surgical History: Reports: Appendectomy Endocrine Surgical History: Reports: Other (See Below) Other Endocrine Surgeries/Procedures: Lymph node biopsy Musculoskeletal Surgical History: Reports: Shoulder Replacement, Shoulder Surgery Oncologic Surgical History: Reports: Other (See Below) Social & Family History - Family History Family Medical History: No Pertinent Family History Cardiac: Reports: Other (See Below) - Tobacco Use Tobacco Use Status *Q: Never Tobacco User - Caffeine Use Caffeine Use: Reports: Coffee Other Caffeine Use: Energy drink 16 oz 5-7 days/week - Recreational Drug Use Recreational Drug Use: No - Living Situation & Occupation Living situation: Reports: , with Family (Son + stepson) 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 Denies: Fever, Chills HEENT: Reports: Rhinitis, Sinus Problem Respiratory: Reports: Shortness of Breath, Cough. Denies: Sputum Cardiovascular: Reports: No Symptoms Endocrine: Reports: No Symptoms GI/Abdominal: Reports: Decreased Appetite : Reports: No Symptoms Musculoskeletal: Reports: No Symptoms Skin: Reports: No Symptoms Neurological: Reports: No Symptoms Psychiatric: Reports: No Symptoms Hematologic/Lymphatic: Reports: No Symptoms Immunologic: Reports: No Symptoms ED EXAM, GENERAL - Physical Exam Exam: See Below Exam Limited By: No Limitations General Appearance: Alert, No Apparent Distress, Other (He appears to have a low-grade fever) Eye Exam: Bilateral Eye: Normal Inspection Ears: Normal External Exam, Normal Canal, Hearing Grossly Normal, Normal TMs Nose: Normal Inspection, Normal Mucosa, No Blood, Other (Sinus discomfort on the right maxillary and frontal sinus also it hurts in this area if he looks down.) Throat/Mouth: Normal Inspection, Normal Lips, Normal Teeth, Normal Gums, Normal Oropharynx, Normal Voice, No Airway Compromise Head: Atraumatic, Normocephalic Neck: Normal Inspection, Supple, Non-Tender. No: Lymphadenopathy (L), Lymphadenopathy (R) Respiratory/Chest: No Respiratory Distress, Lungs Clear, Normal Breath Sounds Cardiovascular: Regular Rate, Rhythm, No Edema, No Murmur GI/Abdominal: Normal Bowel Sounds, Soft, Non-Tender Back Exam: Normal Inspection. No: CVA Tenderness (L), CVA Tenderness (R) Neurological: Alert, Oriented, Normal Cognition Psychiatric: Normal Affect, Normal Mood Skin Exam: Warm, Dry, Intact Course - Vital Signs Last Recorded V/S: Last Vital Signs Temp 37.7 C 07/01/21 05:24 Pulse 76 07/01/21 06:15 Resp 13 07/01/21 06:15 BP 138/77 07/01/21 06:15 Pulse Ox 98 07/01/21 06:15 - Orders/Labs/Meds Orders: Active Orders 24 hr Category Date Time Status Vital Signs [RC] Q15M Care 07/01/21 04:41 Active Chest 1V Frontal [CR] Stat Exams 07/01/21 02:11 Taken EPINEPHrine [Adrenalin] Med 07/01/21 04:41 Active 0.3 mg IM ASDIRECTED PRN Famotidine [Pepcid] Med 07/01/21 04:41 Active 20 mg IVPUSH ASDIRECTED PRN Sodium Chloride 0.9% [Saline Flush] Med 07/01/21 04:45 Active 30 ml FLUSH ASDIRECTED diphenhydrAMINE [Benadryl] Med 07/01/21 04:41 Active 50 mg IVPUSH ASDIRECTED PRN methylPREDNISolone Sod Succ [Solu-MEDROL] Med 07/01/21 04:41 Active 125 mg IVPUSH ASDIRECTED PRN Medication Orders Diphenhydramine HCl (Diphenhydramine 50 Mg/Ml Sdv) 50 mg IVPUSH ASDIRECTED PRN PRN Reason: hypersensitivity reaction Epinephrine HCl (Epinephrine 1 Mg/Ml Sdv) 0.3 mg IM ASDIRECTED PRN PRN Reason: hypersensitivity reaction Famotidine (Famotidine 20 Mg/2 Ml Sdv) 20 mg IVPUSH ASDIRECTED PRN PRN Reason: hypersensitivity reaction Methylprednisolone Sodium Succinate (Methylprednisolone Sodium Succinate 125 Mg/2 Ml Sdv) 125 mg IVPUSH ASDIRECTED PRN PRN Reason: hypersensitivity reaction Sodium Chloride (Sodium Chloride 0.9% 10 Ml Syringe) 30 ml FLUSH ASDIRECTED NINO Labs: Laboratory Tests 07/01/21 07/01/21 07/01/21 Range/Units 02:37 02:37 02:37 WBC 3.85 L (4.23-9.07) K/mm3 RBC 4.60 L (4.63-6.08) M/mm3 Hgb 12.6 L D (13.7-17.5) gm/dl Hct 38.4 L (40.1-51.0) % MCV 83.5 (79.0-92.2) fl MCH 27.4 (25.7-32.2) pg MCHC 32.8 (32.2-35.5) g/dl RDW Std Deviation 39.8 (35.1-43.9) fL Plt Count 80 L D (163-337) K/mm3 MPV 10.7 (9.4-12.3) fl Neut % (Auto) 83.3 H (34.0-67.9) % Lymph % (Auto) 9.4 L (21.8-53.1) % [place] % (Auto) 6.5 (5.3-12.2) % Eos % (Auto) 0.5 L (0.8-7.0) Baso % (Auto) 0.3 (0.1-1.2) % Neut # (Auto) 3.21 (1.78-5.38) K/mm3 Lymph # (Auto) 0.36 L (1.32-3.57) K/mm3 [place] # (Auto) 0.25 L (0.30-0.82) K/mm3 Eos # (Auto) 0.02 L (0.04-0.54) K/mm3 Baso # (Auto) 0.01 (0.01-0.08) K/mm3 Manual Slide Review Abnormal smear Sodium 135 L (136-145) mEq/L Potassium 4.0 (3.5-5.1) mEq/L Chloride 100 (98-107) mEq/L Carbon Dioxide 25 (21-32) mEq/L Anion Gap 14.0 (5-15) BUN 18 (7-18) mg/dL Creatinine 1.0 (0.7-1.3) mg/dL Est Cr Clr Drug Dosing TNP Estimated GFR (MDRD) > 60 (>60) mL/min BUN/Creatinine Ratio 18.0 (14-18) Glucose 109 H (70-99) mg/dL Calcium 8.5 (8.5-10.1) mg/dL Ferritin 599 H (26-388) ng/ml Total Bilirubin 0.5 (0.2-1.0) mg/dL AST 60 H (15-37) U/L ALT 72 H (16-63) U/L Alkaline Phosphatase 80 (46-116) U/L Lactate Dehydrogenase 250 H (85-227) U/L C-Reactive Protein 2.6 H* (<1.0) mg/dL Total Protein 6.5 (6.4-8.2) g/dl Albumin 3.4 (3.4-5.0) g/dl Globulin 3.1 gm/dL Albumin/Globulin Ratio 1.1 (1-2) Meds: Medications Generic Name Dose Route Start Last Admin Trade Name Freq PRN Reason Stop Dose Admin Diphenhydramine HCl 50 mg 07/01/21 04:41 Diphenhydramine 50 Mg/Ml Sdv IVPUSH ASDIRECTED PRN hypersensitivity reaction Epinephrine HCl 0.3 mg 07/01/21 04:41 Epinephrine 1 Mg/Ml Sdv IM ASDIRECTED PRN hypersensitivity reaction Famotidine 20 mg 07/01/21 04:41 Famotidine 20 Mg/2 Ml Sdv IVPUSH ASDIRECTED PRN hypersensitivity reaction Methylprednisolone Sodium Succinate 125 mg 07/01/21 04:41 Methylprednisolone Sodium Succinate 125 Mg/2 Ml Sdv IVPUSH ASDIRECTED PRN hypersensitivity reaction Sodium Chloride 30 ml 07/01/21 04:45 Sodium Chloride 0.9% 10 Ml Syringe FLUSH ASDIRECTED NINO Discontinued Medications Generic Name Dose Route Start Last Admin Trade Name Freq PRN Reason Stop Dose Admin CASIRIVIMAB/IMDEVIMAB 10 ml/ 110 mls @ 220 mls/hr 07/01/21 04:41 07/01/21 05:23 Sodium Chloride IV 07/01/21 05:10 220 mls/hr ONETIME ONE Administration - Re-Assessments/Exams Free Text/Narrative Re-Assessment/Exam: 07/01/21 04:03 Worked up for Covid he is got a Covid-looking infiltrate in his right lung base I do not appreciate any others. Labs are consistent with developing Covid. We did discuss the pros and cons of Regeneron and he would like to give it a try. He understands fully the emergency use authorization and it has not been completely evaluated with clinical trials. I spoke with the patient to provide information about REGEN-COV treatment. I offered them the Patient and Caregiver EUA REGEN-COV Fact Sheet to read and review. I stated the drug has been approved by an emergency use authorization (EUA} process and has not fully been FDA reviewed or approved. The patient meets the EUA requirements. I discussed there are other potential treatment options that are currently not FDA approved to treat COVID 19. Offered opportunity to ask questions and all questions were answered. 07/01/21 06:19 Patient is doing well at this time. He has had the infusion and will be cleared for discharge at 7 AM this morning. We will discharge him with the prescription for amoxicillin and Tessalon. These have been sent electronically to his pharmacy. Departure - Departure Time of Disposition: 06:20 Disposition: Home, Self-Care 01 Clinical Impression: COVID-19, Pneumonia due to COVID-19 virus, Acute bacterial sinusitis - Discharge Information Prescriptions: Amoxicillin 875 mg PO BID #20 tablet Benzonatate [Tessalon Perles] 200 mg PO TID PRN #15 cap PRN Reason: Cough Referrals: Fady Felder MD [Primary Care Provider] - Forms: ED Department Discharge Additional Instructions: Return to the emergency room with any questions problems or worsening symptoms. Take the amoxicillin as directed. This is for your sinus infection. I have also sent a prescription for Tessalon Perles this is a cough medicine take 1 every 8 hours as needed for your coughing. Both your prescriptions have been sent electronically to your pharmacy. Social isolation as directed by the health department or for 10 days after the onset of symptoms or 4 days after you are completely back to normal without the aid of any medication, which ever is longer. Sepsis Event Note (ED) - Focused Exam Vital Signs: Vital Signs Temp Pulse Resp BP Pulse Ox 07/01/21 06:15 76 13 138/77 98 07/01/21 06:00 76 12 119/68 100 07/01/21 05:45 76 14 119/78 97 07/01/21 05:33 76 15 126/78 98 07/01/21 05:24 37.7 C 77 17 130/79 97 07/01/21 04:32 110/65 07/01/21 01:28 38.2 C H 87 17 126/112 H 95 - My Orders Last 24 Hours: My Active Orders 07/01/21 02:11 Chest 1V Frontal [CR] Stat 07/01/21 04:41 Vital Signs [RC] Q15M EPINEPHrine [Adrenalin] 0.3 mg IM ASDIRECTED PRN Famotidine [Pepcid] 20 mg IVPUSH ASDIRECTED PRN diphenhydrAMINE [Benadryl] 50 mg IVPUSH ASDIRECTED PRN methylPREDNISolone Sod Succ [Solu-MEDROL] 125 mg IVPUSH ASDIRECTED PRN 07/01/21 04:45 Sodium Chloride 0.9% [Saline Flush] 30 ml FLUSH ASDIRECTED - Assessment/Plan Last 24 Hours: My Active Orders 07/01/21 02:11 Chest 1V Frontal [CR] Stat 07/01/21 04:41 Vital Signs [RC] Q15M EPINEPHrine [Adrenalin] 0.3 mg IM ASDIRECTED PRN Famotidine [Pepcid] 20 mg IVPUSH ASDIRECTED PRN diphenhydrAMINE [Benadryl] 50 mg IVPUSH ASDIRECTED PRN methylPREDNISolone Sod Succ [Solu-MEDROL] 125 mg IVPUSH ASDIRECTED PRN 07/01/21 04:45 Sodium Chloride 0.9% [Saline Flush] 30 ml FLUSH ASDIRECTED
[2021-07-01] MEDS ORDERED: diphenhydrAMINE 50 MG/ML SDV IVPUSH PRN (04:41)
[2021-07-01] MEDS ORDERED: EPINEPHrine 1 MG/ML SDV IM PRN (04:41)
[2021-07-01] MEDS ORDERED: Famotidine 20 MG/2 ML SDV IVPUSH PRN (04:41)
[2021-07-01] MEDS ORDERED: methylPREDNISolone Sodium Succinate 125 MG/2 ML SDV IVPUSH PRN (04:41)
[2021-07-01] MEDS ORDERED: Sodium Chloride 0.9% 10 ML Syringe FLUSH SCH (04:45)
--- NOTE | 2021-07-01 06:58 | CR ---
Chest: Frontal view of the chest was obtained. Comparison: Prior chest x-ray of 03/23/21. Focal consolidation is noted within the right lung base. Lesser density is seen within the upper right lung. Left lung appears to be clear. Heart size and mediastinum are normal. Bony structures show nothing acute. Impression: 1. Patchy increased density within the right upper chest as well as focal consolidation within the right base. Findings most likely represent COVID pneumonia although difficult to exclude additional regular pneumonia within the right lung base given the consolidation. Please correlate with the patient's symptoms. Diagnostic code #3
== END 2021-07-01 06:53 | disposition home or self-care (01) ==
LOC: JD.ED 01:09
DX: U07.1 COVID-19 (principal); J12.82 Pneumonia due to coronavirus disease 2019; J01.90 Acute sinusitis, unspecified; B96.89 Other specified bacterial agents as the cause of diseases classified elsewhere
CPT/HCPCS: 36415; 71045; 80053; 82728; 83615; 85025; 86140; 99285; M0243; Q0243

== ENCOUNTER 2022-09-14 06:20 | Emergency (ER) | payer BC | END 2022-09-15 06:56 | disposition left against medical advice (07) | LOC: JD.ED 06:20 | DX: Z53.21 Procedure and treatment not carried out due to patient leaving prior to being seen by health care provider (principal) ==

== ENCOUNTER 2025-02-10 13:30 | Emergency (ER) | payer BC ==
[2025-02-10] MEDS ORDERED: Naloxone 0.4 MG/ML SDV IVPUSH PRN ×2 (14:13→15:47)
[2025-02-10] MEDS: Sodium Chloride 0.9% 10 ML Syringe FLUSH PRN (16:15)
== END 2025-02-10 16:16 | disposition home or self-care (01) ==
LOC: JD.ED 13:30
DX: K08.89 Other specified disorders of teeth and supporting structures (principal); E78.00 Pure hypercholesterolemia, unspecified; K21.9 Gastro-esophageal reflux disease without esophagitis; Z79.899 Other long term (current) drug therapy
CPT/HCPCS: 70486; 70486-26; 96374; 96376; 99282; 99283-25; J1171

== ENCOUNTER 2025-04-05 01:31 | Emergency (ER) | payer BC ==
[2025-04-05] MEDS ORDERED: Sodium Chloride 0.9% 10 ML Syringe FLUSH PRN (02:12)
[2025-04-05 02:30] LABS: BASOPHILS ABSOLUTE AUTO 0.0 K/mm3 (0.0-0.2); BASOPHILS PERCENT AUTO 0.3 % (0.0-1.0); EOSINOPHILS ABSOLUTE AUTO 0.1 K/mm3 (0.0-0.4); EOSINOPHILS PERCENT AUTO 1.4 % (0.0-6.0); IMMATURE GRAN ABSOLUTE AUTO 0.02 K/mm3 (0.00-0.05); IMMATURE GRAN PERCENT AUTO 0.2 % (0.0-0.4); LYMPHOCYTES ABSOLUTE AUTO 1.0 K/mm3 (1.0-4.8); LYMPHOCYTES PERCENT AUTO 9.6 % (24.0-44.0); MEAN PLATELET VOLUME 8.8 fl (9.4-12.4); MONOCYTES ABSOLUTE AUTO 0.6 K/mm3 (0.0-0.8); MONOCYTES PERCENT AUTO 6.5 % (0.0-8.0); NEUTROPHILS ABSOLUTE AUTO 8.1 K/mm3 (1.8-7.7); NEUTROPHILS PERCENT AUTO 82.0 % (41.0-71.0); NRBC ABSOLUTE 0.00 (0.00-0.02); NRBC PERCENT 0.0 % (0.0-0.2); PLATELET COUNT,PLT 161 K/mm3 (150-400); RED BLOOD CELL COUNT 4.80 M/mm3 (4.52-5.90); WHITE BLOOD CELL COUNT,WBC 9.87 K/mm3 (3.9-11.3)
[2025-04-05 02:33] LABS: APPEARANCE,URINE SLT CLOUDY (Clear); GLUCOSE,URINE NEGATIVE (Negative); OCCULT BLOOD,URINE NEGATIVE (Negative)
[2025-04-05] MEDS: Iopamidol 612 MG/ML 100 ML Bottle IVPUSH ONE (02:44)
[2025-04-05] MEDS: Sodium Chloride 0.9% 10 ML Syringe FLUSH PRN (02:44)
[2025-04-05 02:53] LABS: A/G RATIO 1.2 (1-2); ALANINE AMINOTRANSFERASE,ALT 42.0 U/L (16-63); ASPARTATE AMNIOTRANSFERASE,AST 33.0 U/L (15-37); BILIRUBIN TOTAL 0.5 mg/dL (0.2-1.0); BLOOD UREA NITROGEN,BUN 15.0 mg/dL (7-18); CARBON DIOXIDE,CO2 30.0 mEq/L (21-32); CHLORIDE,CL 102.0 mEq/L (98-107); CREATININE 0.9 mg/dL (0.7-1.3); EST CRCL DRUG DOSING (CG) 107.27 mL/min; ESTIMATED GFR 102.0 mL/min (>60); GLUCOSE RANDOM 101.0 mg/dL (70-99); POTASSIUM,K 4.0 mEq/L (3.5-5.1); PROTEIN TOTAL,TP 7.1 g/dl (6.4-8.2); SODIUM,NA 137.0 mEq/L (136-145)
== END 2025-04-05 06:10 | disposition home or self-care (01) ==
LOC: JD.ED 01:31
DX: K59.00 Constipation, unspecified (principal); E78.00 Pure hypercholesterolemia, unspecified; Z79.899 Other long term (current) drug therapy; Z86.16 Personal history of COVID-19
CPT/HCPCS: 36415; 74177; 80053; 81003; 83690; 85025; 96360; 99284; J7030; Q9967